=== PATIENT | male | born 1995 | race Caucasian/White ===

== ENCOUNTER 2019-03-18 15:26 | Emergency (ER) | payer BC ==
--- NOTE | 2019-03-18 15:51 | EDM.PDOC ---
ED HPI GENERAL MEDICAL PROBLEM - General Chief Complaint: Syncope Stated Complaint: ALLERGIC REACTION TO MED Time Seen by Provider: 03/18/19 15:33 Source of Information: Reports: Patient, RN Notes Reviewed History Limitations: Reports: No Limitations - History of Present Illness INITIAL COMMENTS - FREE TEXT/NARRATIVE: Patient is a 24-year-old male who presents to the ED for evaluation of a possible allergic reaction. The patient notes he has multiple environmental allergies for which she takes allergy shots. He was in the clinic today and getting these allergy shots when he became is the, pale, diaphoretic after receiving his allergy shot about 3:21 PM. The nurse did administer his epinephrine autoinjector at the clinic and brought him to the ED for evaluation. The patient notes that he has never had an issue like this in the past. The patient states that he had a normal meal, both for breakfast and lunch. He denies any shortness of breath, wheeze, chest pain. He states at the time his hands went numb. At time of triage his vitals are stable, he is not tachycardic, there is no respiratory wheezing, and his SPO2 level is 99% on room air. - Related Data Allergies Allergy/AdvReac Type Severity Reaction Status Date / Time dog dander Allergy Wheezing Verified 03/18/19 15:33 pollen extracts Allergy Wheezing Verified 03/18/19 15:33 Home Meds: Home Meds Albuterol Sulfate [Proair Hfa] 1 dose INH DAILY 03/18/19 [History] Montelukast Sodium [Singulair] 10 mg PO DAILY 03/18/19 [History] Past Medical History Cardiovascular History: Reports: None Respiratory History: Reports: None Gastrointestinal History: Reports: None Genitourinary History: Reports: None Musculoskeletal History: Reports: None Neurological History: Reports: None Psychiatric History: Reports: None Endocrine/Metabolic History: Reports: None Hematologic History: Reports: None Immunologic History: Reports: None Oncologic (Cancer) History: Reports: None Dermatologic History: Reports: None - Infectious Disease History Infectious Disease History: Reports: None - Past Surgical History Head Surgeries/Procedures: Reports: None HEENT Surgical History: Reports: Oral Surgery Other HEENT Surgeries/Procedures: Sinus Surgery and [place] teeth removal. Social & Family History - Tobacco Use Smoking Status *Q: Never Smoker - Caffeine Use Caffeine Use: Reports: Soda - Recreational Drug Use Recreational Drug Type: Reports: Xanax ED ROS GENERAL - Review of Systems Review Of Systems: See Below Constitutional: Reports: Diaphoresis. Denies: Fever, Chills HEENT: Denies: Throat Swelling Respiratory: Denies: Shortness of Breath, Wheezing Cardiovascular: Denies: Chest Pain Endocrine: Reports: No Symptoms GI/Abdominal: Reports: No Symptoms : Reports: No Symptoms Musculoskeletal: Reports: No Symptoms Skin: Denies: Rash Neurological: Reports: Syncope (feelings of being faint) Psychiatric: Reports: No Symptoms Hematologic/Lymphatic: Reports: No Symptoms Immunologic: Reports: No Symptoms ED EXAM, GENERAL - Physical Exam Exam: See Below Exam Limited By: No Limitations General Appearance: Alert, WD/WN, No Apparent Distress Eye Exam: Bilateral Eye: Normal Inspection Throat/Mouth: Normal Inspection, Normal Lips, Normal Teeth, Normal Gums, Normal Oropharynx, Normal Voice, No Airway Compromise Head: Atraumatic, Normocephalic Neck: Normal Inspection Respiratory/Chest: No Respiratory Distress, Lungs Clear, Normal Breath Sounds, No Accessory Muscle Use, Chest Non-Tender Cardiovascular: Normal Peripheral Pulses, Regular Rate, Rhythm, No Murmur Extremities: Normal Inspection, Normal Capillary Refill Neurological: Alert, Oriented, Normal Cognition, No Motor/Sensory Deficits Psychiatric: Normal Affect, Normal Mood Skin Exam: Warm, Intact, Normal Color, No Rash, Diaphoretic Course - Vital Signs Last Recorded V/S: Last Vital Signs Temp Pulse 73 03/18/19 15:30 Resp 16 03/18/19 15:30 BP 129/87 03/18/19 15:30 Pulse Ox 95 03/18/19 15:30 - Re-Assessments/Exams Free Text/Narrative Re-Assessment/Exam: 03/18/19 15:48 Patient presents to the ED for the evaluation of a possible allergic reaction. As the patient was injected with his EpiPen at the clinic, it is hard to elicit whether this was a true allergic reaction or if this was more of a vasovagal episode in nature. His symptoms have drastically subsided at time of ER visit, which is suggestive more for a vasovagal reaction. His vitals are stable, and I have reassured him that there does not appear to be any more ominous processes going on. We will keep him around for the 15-30 minute observation period and likely discharge him home with no complications. 03/18/19 16:16 Patient was re-assessed at bedside, and he states that he feels much better. He is still hemodynamically stable. He will be discharged home safely. Departure - Departure Time of Disposition: 16:17 Disposition: Home, Self-Care 01 Condition: Fair Clinical Impression: Vasovagal response - Discharge Information *PRESCRIPTION DRUG MONITORING PROGRAM REVIEWED*: No *COPY OF PRESCRIPTION DRUG MONITORING REPORT IN PATIENT GABRIEL: No Instructions: Near-Syncope, [id number] Referrals: Daisy Sutton PA-C [Primary Care Provider] - Forms: ED Department Discharge Additional Instructions: You have been evaluated in the ED today for your feelings of passing out after receiving your allergy shots. It is likely that this is due to a vasovagal response in your body. Your symptoms are consistent with a vasovagal episode. You should not have any residual side effects from this. You do still have EpiPen autoinjectors available in times of anaphylaxis. Please use as previously directed for anaphylaxis. Please return to the ED if her symptoms should change or worsen.
== END 2019-03-18 16:32 | disposition home or self-care (01) ==
LOC: JD.ED 15:26
DX: R55 Syncope and collapse (principal); Z91.048 Other nonmedicinal substance allergy status; Z79.899 Other long term (current) drug therapy
CPT/HCPCS: 99282; 99283

== ENCOUNTER 2020-06-29 23:37 | Emergency (ER) | payer BC ==
[2020-06-29] MEDS ORDERED: Dextrose 5% in Water 500 ML IV SCH (23:45)
[2020-06-30] MEDS ORDERED: Acetaminophen 325 MG Tab PO ONE (00:08)
--- NOTE | 2020-06-30 00:08 | EDM.PDOC ---
ED HPI GENERAL MEDICAL PROBLEM - General Chief Complaint: Respiratory Problem Stated Complaint: COVID POSITIVE/SOB Time Seen by Provider: 06/29/20 23:56 Source of Information: Reports: Patient History Limitations: Reports: No Limitations - History of Present Illness INITIAL COMMENTS - FREE TEXT/NARRATIVE: 25-year-old male presents the ED for evaluation of new onset of high fever. Minimal cough. Markedly decreased appetite. Occasional loose diarrhea stool. Patient is now 3 weeks post diagnosis of COVID-19 illness. He went to work for the first time in the last 24 hours in 2 weeks. States he feels short of breath. Mild headache. He did take 200 mg of Motrin prior to coming to the ED. Denies nausea vomiting. Denies any dysuria urgency frequency. No productive cough. Mild generalized body ache and headache. He states that he felt he got a fairly mild 19 with the initial illness 3 weeks ago. Onset: Today, Sudden Onset Date: 06/29/20 (Spiked fever of greater than 101.5 at home. Generalized myalgia headache) Onset Time: 23:00 Duration: Hour(s):, Constant Location: Reports: Generalized (Generalized myalgia. High fever mild body ache decreased appetite) Quality: Reports: Ache Severity: Moderate Improves with: Reports: None Worsens with: Reports: Movement Context: Reports: Other. Denies: Activity (Activity such as walking fast), Exercise, Lifting, Sick Contact, Trauma Associated Symptoms: Reports: Cough, Fever/Chills (Fever), Headaches, Loss of Appetite, Malaise (Productive), Shortness of Breath, Weakness, Other (Diarrhea x1 today. Yellow in color). Denies: Confusion (3 weeks post diagnosis of COVID-19 illness.), Chest Pain, cough w sputum, Diaphoresis, Nausea/Vomiting, Rash, Seizure, Syncope Treatments [employer]: Reports: NSAIDS (Took 200 mg of Motrin before coming to the ED) - Related Data Allergies Allergy/AdvReac Type Severity Reaction Status Date / Time dog dander Allergy Wheezing Verified 06/29/20 23:48 pollen extracts Allergy Wheezing Verified 06/29/20 23:48 Home Meds: Home Meds Albuterol Sulfate [Proair Hfa] 1 dose INH DAILY 03/18/19 [History] Montelukast Sodium [Singulair] 10 mg PO DAILY 03/18/19 [History] Past Medical History Cardiovascular History: Reports: None Respiratory History: Reports: Asthma Gastrointestinal History: Reports: None Genitourinary History: Reports: None Musculoskeletal History: Reports: None Neurological History: Reports: None Psychiatric History: Reports: None Endocrine/Metabolic History: Reports: None Hematologic History: Reports: None Immunologic History: Reports: None Oncologic (Cancer) History: Reports: None Dermatologic History: Reports: None - Infectious Disease History Infectious Disease History: Reports: Novel Coronavirus - Past Surgical History HEENT Surgical History: Reports: Oral Surgery Other HEENT Surgeries/Procedures: Sinus Surgery and [place] teeth removal. Social & Family History - Tobacco Use Smoking Status *Q: Never Smoker - Caffeine Use Caffeine Use: Reports: Soda - Alcohol Use Days Per Week of Alcohol Use: 2 Number of Drinks Per Day: 5 Total Drinks Per Week: 10 - Recreational Drug Use Recreational Drug Use: Yes Drug Use in Last 12 Months: Yes Recreational Drug Type: Reports: Marijuana/Hashish Recreational Drug Use Frequency: Daily - Living Situation & Occupation Living situation: Reports: Single, with Family Occupation: Employed ED ROS GENERAL - Review of Systems Review Of Systems: See Below Constitutional: Reports: Fever, Chills, Malaise, Weakness, Fatigue, Decreased Appetite HEENT: Reports: No Symptoms Respiratory: Reports: Shortness of Breath, Cough. Denies: Wheezing, Pleuritic Chest Pain, Sputum, Hemoptysis (Nonproductive cough) Cardiovascular: Reports: Dyspnea on Exertion. Denies: Chest Pain, Blood Pressure Problem, Claudication (Blood pressure is elevated at the initial time of examination 1 6599), Edema, Lightheadedness, Orthopnea, Palpitations Endocrine: Reports: Fatigue GI/Abdominal: Reports: Diarrhea (1 loose diarrhea stool in the last 24 hours.), Decreased Appetite (Is eaten only 1 piece of pizza all day in the last 24 hours). Denies: Nausea, Stool Incontinence, Vomiting : Reports: No Symptoms Musculoskeletal: Reports: Muscle Pain Skin: Reports: No Symptoms (Generalized myalgia.) Neurological: Reports: Headache, Weakness. Denies: Confusion, Dizziness, Paresthesia, Pre-Existing Deficit, Seizure, Syncope, Tremors, Trouble Speaking, Difficulty Walking Psychiatric: Reports: No Symptoms Hematologic/Lymphatic: Reports: No Symptoms Immunologic: Reports: No Symptoms ED EXAM, GENERAL - Physical Exam Exam: See Below Exam Limited By: No Limitations General Appearance: Alert, WD/WN, No Apparent Distress, Other (Patient does feel very flushed in the face. He is very warm palpation I would suspect around 102 degrees. Nurses recorded temperature of 36.6. Heart rate is 56 and sinus he does workout with weights. Respiratory 17 with O2 sats of 99% room air BP elevated 1 6599. It has subsequently come down to 149/95) Eye Exam: Bilateral Eye: Normal Inspection, PERRL Ears: Normal TMs Throat/Mouth: Normal Lips, Normal Teeth, Normal Voice, No Airway Compromise, Other (The posterior oropharynx is mildly erythematous without any exudate.) Head: Atraumatic, Normocephalic Neck: Normal Inspection, Supple, Non-Tender, Full Range of Motion. No: Lymphadenopathy (L), Lymphadenopathy (R) Respiratory/Chest: No Respiratory Distress, Lungs Clear, Normal Breath Sounds, No Accessory Muscle Use, Chest Non-Tender Cardiovascular: Normal Peripheral Pulses, Regular Rate, Rhythm, No Edema, No Gallop, No Murmur, No Rub Peripheral Pulses: 3+: Carotid (L), Carotid (R), Posterior Tibial (L), Posterior Tibial (R), Dorsalis Pedis (L), Dorsalis Pedis (R) GI/Abdominal: Normal Bowel Sounds, Soft, Non-Tender, No Organomegaly, No Abnormal Bruit, No Mass, Pelvis Stable, Other (No surgical scars) Back Exam: Normal Inspection, Full Range of Motion. No: CVA Tenderness (L), CVA Tenderness (R) Extremities: Normal Inspection, Normal Range of Motion, Non-Tender, No Pedal Edema Neurological: Alert, Oriented, CN II-XII Intact, Normal Cognition Psychiatric: Normal Affect, Normal Mood Skin Exam: Warm, Dry, Intact, Normal Color, No Rash Course - Vital Signs Last Recorded V/S: Last Vital Signs Temp 36.6 C 06/29/20 23:49 Pulse 56 L 06/29/20 23:49 Resp 17 06/29/20 23:49 BP 165/99 H 06/29/20 23:49 Pulse Ox 99 06/29/20 23:49 - Orders/Labs/Meds Orders: Active Orders 24 hr Category Date Time Status Chest 1V Frontal [CR] Stat Exams 06/29/20 23:57 Taken Dextrose 5%-0.9% NaCl [Dextrose 5%-Normal Saline] 1,000 Med 06/30/20 00:15 Active ml IV ASDIRECTED Medication Orders Dextrose/Sodium Chloride (Dextrose 5%-Normal Saline) 1,000 mls @ 250 mls/hr IV ASDIRECTED DUDLEY Last Admin: 06/30/20 00:18 Dose: 250 mls/hr Documented by: TIFF Labs: Laboratory Tests 06/30/20 06/30/20 06/30/20 Range/Units 00:15 00:15 00:15 WBC 6.86 (4.23-9.07) K/mm3 RBC 5.29 (4.63-6.08) M/mm3 Hgb 16.1 (13.7-17.5) gm/dl Hct 46.9 (40.1-51.0) % MCV 88.7 (79.0-92.2) fl MCH 30.4 (25.7-32.2) pg MCHC 34.3 (32.2-35.5) g/dl RDW Std Deviation 37.4 (35.1-43.9) fL Plt Count 305 (163-337) K/mm3 MPV 10.3 (9.4-12.3) fl Neut % (Auto) 58.3 (34.0-67.9) % Lymph % (Auto) 24.3 (21.8-53.1) % Coles % (Auto) 11.2 (5.3-12.2) % Eos % (Auto) 5.2 (0.8-7.0) Baso % (Auto) 1.0 (0.1-1.2) % Neut # (Auto) 3.99 (1.78-5.38) K/mm3 Lymph # (Auto) 1.67 (1.32-3.57) K/mm3 Coles # (Auto) 0.77 (0.30-0.82) K/mm3 Eos # (Auto) 0.36 (0.04-0.54) K/mm3 Baso # (Auto) 0.07 (0.01-0.08) K/mm3 D-Dimer, Quantitative < 0.19 L (0.19-0.50) mg/L Sodium 138 (136-145) mEq/L Potassium 4.0 (3.5-5.1) mEq/L Chloride 99 (98-107) mEq/L Carbon Dioxide 27 (21-32) mEq/L Anion Gap 16.0 H (5-15) BUN 12 (7-18) mg/dL Creatinine 1.4 H (0.7-1.3) mg/dL Est Cr Clr Drug Dosing 97.24 mL/min Estimated GFR (MDRD) > 60 (>60) mL/min BUN/Creatinine Ratio 8.6 L (14-18) Glucose 163 H (74-106) mg/dL Calcium 9.7 (8.5-10.1) mg/dL Magnesium 2.0 (1.8-2.4) mg/dl Ferritin (26-388) ng/ml Total Bilirubin 3.3 H (0.2-1.0) mg/dL AST 33 (15-37) U/L ALT 54 (16-63) U/L Alkaline Phosphatase 60 (46-116) U/L Lactate Dehydrogenase 187 (85-227) U/L Troponin I < 0.017 (0.00-0.056) ng/mL C-Reactive Protein <0.2 (<1.0) mg/dL NT-Pro-B Natriuret Pep (0-125) pg/mL Total Protein 7.7 (6.4-8.2) g/dl Albumin 4.5 (3.4-5.0) g/dl Globulin 3.2 gm/dL Albumin/Globulin Ratio 1.4 (1-2) 06/30/20 06/30/20 Range/Units 00:15 00:15 WBC (4.23-9.07) K/mm3 RBC (4.63-6.08) M/mm3 Hgb (13.7-17.5) gm/dl Hct (40.1-51.0) % MCV (79.0-92.2) fl MCH (25.7-32.2) pg MCHC (32.2-35.5) g/dl RDW Std Deviation (35.1-43.9) fL Plt Count (163-337) K/mm3 MPV (9.4-12.3) fl Neut % (Auto) (34.0-67.9) % Lymph % (Auto) (21.8-53.1) % Coles % (Auto) (5.3-12.2) % Eos % (Auto) (0.8-7.0) Baso % (Auto) (0.1-1.2) % Neut # (Auto) (1.78-5.38) K/mm3 Lymph # (Auto) (1.32-3.57) K/mm3 Coles # (Auto) (0.30-0.82) K/mm3 Eos # (Auto) (0.04-0.54) K/mm3 Baso # (Auto) (0.01-0.08) K/mm3 D-Dimer, Quantitative (0.19-0.50) mg/L Sodium (136-145) mEq/L Potassium (3.5-5.1) mEq/L Chloride (98-107) mEq/L Carbon Dioxide (21-32) mEq/L Anion Gap (5-15) BUN (7-18) mg/dL Creatinine (0.7-1.3) mg/dL Est Cr Clr Drug Dosing mL/min Estimated GFR (MDRD) (>60) mL/min BUN/Creatinine Ratio (14-18) Glucose (74-106) mg/dL Calcium (8.5-10.1) mg/dL Magnesium (1.8-2.4) mg/dl Ferritin 367 (26-388) ng/ml Total Bilirubin (0.2-1.0) mg/dL AST (15-37) U/L ALT (16-63) U/L Alkaline Phosphatase (46-116) U/L Lactate Dehydrogenase (85-227) U/L Troponin I (0.00-0.056) ng/mL C-Reactive Protein (<1.0) mg/dL NT-Pro-B Natriuret Pep 8 (0-125) pg/mL Total Protein (6.4-8.2) g/dl Albumin (3.4-5.0) g/dl Globulin gm/dL Albumin/Globulin Ratio (1-2) Meds: Medications Generic Name Dose Route Start Last Admin Trade Name Freq PRN Reason Stop Dose Admin Dextrose/Sodium Chloride 1,000 mls @ 250 mls/hr 06/30/20 00:15 06/30/20 00:18 Dextrose 5%-Normal Saline IV 250 mls/hr ASDIRECTED DUDLEY Administration Discontinued Medications Generic Name Dose Route Start Last Admin Trade Name Freq PRN Reason Stop Dose Admin Acetaminophen 975 mg 06/30/20 00:08 06/30/20 00:16 Tylenol PO 06/30/20 00:09 975 mg ONETIME ONE Administration Dextrose/Water 500 mls @ 250 mls/hr 06/29/20 23:45 Dextrose 5% In Water IV ASDIRECTED DUDLEY - Radiology Interpretation Free Text/Narrative:: 25-year-old male presents to the ED with acute onset of fever and associated dyspnea. He states this is his first day back at work after 3 weeks off due to COVID-19 illness. States he was fatigued at work and found it a little bit more exertional than normal. He subjectively feels more short of breath over the last several hours. He is very warm to palpation suggesting a febrile illness. He has minimal cough and no sputum production. Poor appetite persists post COVID-19. He has had 1 piece of pizza in the last 24 hours. Still has the occasional loose yellow stool. No abdominal pain. No chest pain. Feels weak. Examination reveals that he is indeed febrile I would expect 202 degrees by examination. Ear nose and throat examination shows mild diffuse pharyngitis erythema without any exudate. No cervical adenopathy. Chest is clear to osseous percussion. Heart was sinus bradycardia at 58/min. Benign abdominal examination integument normal. Plan IV will be D5 normal saline at 250 mils per hour. Routine labs including COVID-19 labs to be done to see if there is lingering inflammation 3 weeks post COVID-19 illness. 1 view chest x-ray to be done. Given Tylenol 975 mg p.o. since he took Motrin 200 mg just before coming to the ED. - Re-Assessments/Exams Free Text/Narrative Re-Assessment/Exam: 06/30/20 01:00 potable chest x-ray reveals normal lung martines without any pulmonary infiltrates or pleural effusions. No pneumothorax. Cardiac silhouette is normal.Labs reveal a normal white count at 6.86 with 58% neutrophils. Hemoglobin is 16.1 with hematocrit of 46.9. Platelet counts 305,000. D-dimer is less than 0.19. 06/30/20 01:36 D-dimer returned at less than 0.19. Sodium 138 with potassium 4.0. Chloride 99 with a bicarb of 27. Anion gap is 16.0. BUN is 12 with a creatinine of 1.4. GFR is greater than 60. Glucose 163 with a calcium of 9.7. Magnesium 2.0 with a ferritin slightly elevated at 367. Total bilirubin 3.3. Liver function otherwise normal. LDH is normal at 187. Troponin I is less than 0.017. C-reactive protein is less than 0.2. BNP is 8 total protein 7.7 with an albumin fraction of 4.5. I have discussed the results with the patient. It appears he is most likely coming down with another viral illness non-COVID like. Advised taking the rest of today. Continue Motrin 600 mg every 6 hours needed for fever relief. If fever lasts longer than 48 hours he is to be reviewed. Departure - Departure Time of Disposition: 01:41 Disposition: Home, Self-Care 01 Condition: Fair Clinical Impression: Acute febrile illness, Viral syndrome - Discharge Information *PRESCRIPTION DRUG MONITORING PROGRAM REVIEWED*: Not Applicable *COPY OF PRESCRIPTION DRUG MONITORING REPORT IN PATIENT GABRIEL: Not Applicable Instructions: Viral Respiratory Infection, [id number] Referrals: PCP,None [Primary Care Provider] - Forms: ED Department Discharge, ED Return to Work/School Form Additional Instructions: Evaluation in the emergency room today in regards to recurrence of fever clinically about 102C. Decreased associated appetite and mild generalized muscle aches and pains. COVID-19 positivity 3 weeks ago. Clinically this appears to have resolved. Lab test done in the ER today do not reveal any elevation of the markers for COVID-19 inflammation such as ferritin, d-dimer, troponin, LDH elevation. X-ray 1 view done shows no evidence of any pneumonia. White blood cell count was 6.8 with a normal differential that does not suggest any sign of a bacterial infection. Currently it appears that another virus is taken advantage of you. That has yet to declare itself in terms of upper respi ratory tract or GI tract etiology. Suggest off work today. Continue Motrin 600 mg every 6 hours needed to break the fever. Diet as able. If the fever lasts longer than 48 hours you should be reviewed again by medical personnel. Sepsis Event Note (ED) - Evaluation Sepsis Screening Result: No Definite Risk - Focused Exam Vital Signs: Vital Signs Temp Pulse Resp BP Pulse Ox 06/29/20 23:49 36.6 C 56 L 17 165/99 H 99 - My Orders Last 24 Hours: My Active Orders 06/29/20 23:57 Chest 1V Frontal [CR] Stat 06/30/20 00:15 Dextrose 5%-0.9% NaCl [Dextrose 5%-Normal Saline] 1,000 ml IV ASDIRECTED - Assessment/Plan Last 24 Hours: My Active Orders 06/29/20 23:57 Chest 1V Frontal [CR] Stat 06/30/20 00:15 Dextrose 5%-0.9% NaCl [Dextrose 5%-Normal Saline] 1,000 ml IV ASDIRECTED
[2020-06-30] MEDS ORDERED: Dextrose 5%-0.9% NaCl 1,000 ML IV SCH (00:15)
--- NOTE | 2020-07-31 13:21 | CR ---
PROCEDURE INFORMATION: Exam: XR Chest, 1 View Exam date and time: 06/30/2020 12:23 AM Age: 25 years old Clinical indication: Cough and fever; Patient HX: 3 weeks post diagnosis of covid, dyspnea, cough, and fever tonight TECHNIQUE: Imaging protocol: XR of the chest Views: 1 view. COMPARISON: No relevant prior studies available. FINDINGS: Lungs: Unremarkable. No consolidation. Pleural space: Unremarkable. No pleural effusion. No pneumothorax. Heart/Mediastinum: Unremarkable. No cardiomegaly. Bones/joints: Unremarkable. IMPRESSION: No acute findings. Thank you for allowing us to participate in the care of your patient. Dictated and Authenticated by: Edu Ortiz MD 07/31/2020 1:12 PM Central Time ([place] & [place]) [place]
== END 2020-06-30 01:51 | disposition home or self-care (01) ==
LOC: JD.ED 23:37
DX: B34.9 Viral infection, unspecified (principal); Z86.19 Personal history of other infectious and parasitic diseases
CPT/HCPCS: 36415; 71045; 80053; 82728; 83615; 83735; 83880; 84484; 85025; 85379; 86140; 96360; 96361; 99283; A9270; J7042

== ENCOUNTER 2025-02-15 07:39 | Emergency (ER) | payer BC ==
[2025-02-15] MEDS ORDERED: Sodium Chloride 0.9% 10 ML Syringe FLUSH PRN (08:24)
[2025-02-15 08:52] LABS: BASOPHILS ABSOLUTE AUTO 0.1 K/mm3 (0.0-0.2); EOSINOPHILS ABSOLUTE AUTO 0.3 K/mm3 (0.0-0.4); EOSINOPHILS PERCENT AUTO 6.5 % (0.0-6.0); HEMATOCRIT 44.5 % (42.0-52.0); IMMATURE GRAN ABSOLUTE AUTO 0.01 K/mm3 (0.00-0.05); IMMATURE GRAN PERCENT AUTO 0.2 % (0.0-0.4); LYMPHOCYTES ABSOLUTE AUTO 1.4 K/mm3 (1.0-4.8); LYMPHOCYTES PERCENT AUTO 28.5 % (24.0-44.0); MEAN CORPUSCULAR HEMOGLOBIN 29.6 pg (28.0-32.0); MEAN CORPUSCULAR HGB CONC 33.7 g/dl (32.0-36.0); MEAN CORPUSCULAR VOLUME 87.8 fl (83.0-99.0); MEAN PLATELET VOLUME 10.7 fl (9.4-12.4); MONOCYTES ABSOLUTE AUTO 0.6 K/mm3 (0.0-0.8); MONOCYTES PERCENT AUTO 11.2 % (0.0-8.0); NEUTROPHILS ABSOLUTE AUTO 2.6 K/mm3 (1.8-7.7); NEUTROPHILS PERCENT AUTO 52.6 % (41.0-71.0); PLATELET COUNT,PLT 247 K/mm3 (150-400); RED BLOOD CELL COUNT 5.07 M/mm3 (4.52-5.90); WHITE BLOOD CELL COUNT,WBC 4.92 K/mm3 (3.9-11.3)
[2025-02-15 09:32] LABS: A/G RATIO 1.2 (1-2); ALBUMIN 4.1 g/dl (3.4-5.0); ANION GAP 10.9 (5-15); BILIRUBIN TOTAL 1.6 mg/dL (0.2-1.0); BUN/CREATININE RATIO 16.4 (14-18); CALCIUM 9.3 mg/dL (8.5-10.1); CREATININE 1.1 mg/dL (0.7-1.3); EST CRCL DRUG DOSING (CG) 119.49 mL/min; MAGNESIUM 1.9 mg/dL (1.8-2.4); POTASSIUM,K 4.9 mEq/L (3.5-5.1); PROTEIN TOTAL,TP 7.5 g/dl (6.4-8.2)
== END 2025-02-15 11:05 | disposition home or self-care (01) ==
LOC: JD.ED 07:39
DX: F41.9 Anxiety disorder, unspecified (principal); J45.909 Unspecified asthma, uncomplicated; Z91.048 Other nonmedicinal substance allergy status; Z79.899 Other long term (current) drug therapy; Z88.8 Allergy status to other drugs, medicaments and biological substances; Z86.16 Personal history of COVID-19
CPT/HCPCS: 36415; 71045; 71045-26; 80053; 83735; 83880; 84484; 85025; 85379; 93005; 99285